=== PATIENT | female | born 1950 | race Caucasian/White ===

== ENCOUNTER 2024-02-05 06:28 | Day surgery (SDC) | payer MEDICARE, SELFPAY ==
--- NOTE | 2024-01-01 10:40 | CM ---
Patient is scheduled for an elective L TKR on 02/05/24- she is a same day patient. Spoke with patient prior to surgery. Introduced role of Orthopedic Navigator. Patient reports that she lives with her daughter, daughter's boy friend and two
grandchildren in a two story home. There are no steps to enter and a flight of steps to the second floor. There is one step down to family room. She currently functions independently. She has a cane and rolling walker. She has never had VN services.
PCP is PERRY Morales.
Discussed orthopedic program and post surgical plans. Reviewed that she will have VN services initially (medicare.gov website and ratings reviewed) and will then start outpatient PT. Patient selects [facility] (face sheet faxed to [facility] to facilitate
confirmation of benefits) for her home care needs and is unsure where she will go for outpatient PT.
Patient is in agreement with plan and states that her daughter will be home with her.
Patient will complete online education.
Plan: Orthopedic Navigator will remain available to assist with the care of patient and will reassess discharge needs after surgery.
[2024-01-15 12:21] VITALS: BMI 39.3
[2024-01-15 13:50] LABS: Hematocrit 49.8 % (37.0-47.0); Hemoglobin 16.9 g/dL (12.0-16.0); Mean Corp Hgb Conc. 33.9 g/dL (33.0-37.0); Mean Corpuscular Hgb 31.9 pg (27.0-31.0); Mean Corpuscular Volume 94.1 fL (81.0-99.0); Mean Platelet Volume 9.1 fL (7.4-10.4); Platelet Count 257 10^3/uL (130-400); Red Blood Cell Count 5.29 10^6/uL (4.20-5.40); Red Cell Dist. Width 12.4 % (11.5-14.5); White Blood Cell Count 7.6 10^3/uL (4.8-10.8)
[2024-01-15 14:35] LABS: ALT (SGPT) 28 U/L (0-35); AST (SGOT) 36 U/L (14-36); Albumin 4.5 g/dl (3.5-5.0); Alkaline Phosphatase 62 U/L (38-126); Blood Urea Nitrogen 18 mg/dl (7-17); Calcium 9.9 mg/dl (8.4-10.2); Carbon Dioxide 25 mmol/L (22-30); Chloride 102 mmol/L (98-107); Estimated Creatinine Clearance 98 ml/min; Glucose 99 mg/dl (70-99); Sodium 139 mmol/L (135-145); Total Bilirubin 1.4 mg/dl (0.2-1.3); Total Protein 7.6 g/dl (6.3-8.2); eGFR > 60.00
[2024-01-15 14:40] LABS: Glycohemoglobin (HgbA1c) 5.9 % (4.0-5.6)
[2024-01-15 14:53] VITALS: BMI 39.3
--- NOTE | 2024-01-18 08:46 | SLEEP.APNEA ---
Sleep Apnea Order
-
Patient screened as High Risk for Sleep Apnea on [employer] Questionnaire. Patient referred to [facility] for Pre-Study.

Name: HENRY RAPHAEL
: 1950
Home Phone: Use [email or web address] instead
Cell Phone: [f_Reg Other Phone]
Work Phone:
Address: [address] [place] [address]
City: [place]
State: [place]
Zip: [f_[facility] Zip]
Family Physician: Geetha Urbina
Height 5 ft 4 in
Actual Weight 103.9 kg
Body Mass Index (BMI) 39.3
Ordering Provider: Rosemarie Ortiz PA-C
[2024-02-05] VITALS (10 sets, daily range): BP systolic 115–162; BP diastolic 65–93; PULSE 96; O2SAT 97; BMI 39.3
[2024-02-05] MEDS: CELEBREX 200 MG PO (08:09)
[2024-02-05] MEDS: BACTROBAN NASAL 1 GRAM NASAL (08:10)
[2024-02-05] MEDS: TYLENOL 650 MG PO (08:10)
[2024-02-05] MEDS: NORMOSOL-R 1000 IV (08:11)
--- NOTE | 2024-02-05 12:09 | CM ---
Patient had planned L TKR today. Met with patient at bedside to review discharge plans. Patient will be returning home today with services through [facility]. On , 02/07, patient will start outpatient PT at [facility]. Reviewed MD follow up in two weeks
and patient has already scheduled her appointment.
Patient has her rolling walker here with her.
PT and [facility] were kept updated as to progress and discharge plans.
[2024-02-05] MEDS: ANCEF 5 IV (13:21)
== END 2024-02-05 14:03 | disposition home health service (06) ==
LOC: SDS 06:28
PROVIDERS: ATTENDING PHYSICIAN Specialist; FAMILY PHYSICIAN Nurse Practitioner; OTHER PHYSICIAN Physician Assistant
PROC: 0SRD06Z Replacement of Left Knee Joint with Oxidized Zirconium on Polyethylene Synthetic Substitute, Open Approach (ICD-10-PCS; 2024-02-05)
DX: M17.12 Unilateral primary osteoarthritis, left knee (principal); E66.9 Obesity, unspecified; G47.33 Obstructive sleep apnea (adult) (pediatric); E78.5 Hyperlipidemia, unspecified; I10 Essential (primary) hypertension; I25.10 Atherosclerotic heart disease of native coronary artery without angina pectoris; J45.909 Unspecified asthma, uncomplicated; R73.03 Prediabetes; Z68.39 Body mass index [BMI] 39.0-39.9, adult; M54.50 Low back pain, unspecified; Z79.82 Long term (current) use of aspirin; Z96.652 Presence of left artificial knee joint; Z88.0 Allergy status to penicillin; I25.2 Old myocardial infarction; K76.0 Fatty (change of) liver, not elsewhere classified
CPT/HCPCS: 27447; C1776; 36415; 73560; 80053; 83036; 85027; 87070; 97116; 97161

== ENCOUNTER → 2024-04-12 13:13 | Outpatient (REF) | payer MEDICARE, OTHER, SELFPAY ==
[2024-04-12 13:41] VITALS: BMI 38.4
[2024-04-12 14:32] LABS: Hematocrit 48.1 % (37.0-47.0); Hemoglobin 16.5 g/dL (12.0-16.0); Mean Corp Hgb Conc. 34.3 g/dL (33.0-37.0); Mean Corpuscular Hgb 31.3 pg (27.0-31.0); Mean Corpuscular Volume 91.3 fL (81.0-99.0); Mean Platelet Volume 9.4 fL (7.4-10.4); Platelet Count 301 10^3/uL (130-400); Red Blood Cell Count 5.27 10^6/uL (4.20-5.40); Red Cell Dist. Width 12.8 % (11.5-14.5); White Blood Cell Count 8.9 10^3/uL (4.8-10.8)
== END ==
LOC: SDSPAT 13:13
PROVIDERS: ATTENDING PHYSICIAN Specialist; FAMILY PHYSICIAN Nurse Practitioner
DX: Z01.818 Encounter for other preprocedural examination (principal)
CPT/HCPCS: 36415; 85027

== ENCOUNTER 2024-04-15 06:25 | Day surgery (SDC) | payer MEDICARE, OTHER, SELFPAY ==
[2024-04-15] VITALS (9 sets, daily range): BP systolic 144–176; BP diastolic 61–97; BMI 40.8
[2024-04-15] MEDS: TYLENOL 1000 MG PO (10:41)
[2024-04-15] MEDS: CELEBREX 200 MG PO (10:41)
[2024-04-15] MEDS: NORMOSOL-R 1000 IV (10:52)
[2024-04-15] MEDS: DILAUDID 0.5 MG IV (12:34)
== END 2024-04-15 13:55 | disposition home or self-care (01) ==
LOC: SDS 06:25
PROVIDERS: ATTENDING PHYSICIAN Specialist; FAMILY PHYSICIAN Nurse Practitioner
DX: M24.662 Ankylosis, left knee (principal); M25.862 Other specified joint disorders, left knee; Z96.652 Presence of left artificial knee joint
CPT/HCPCS: 27570